=== PATIENT | male | born 1955 | race Caucasian/White ===

== ENCOUNTER → 2025-02-23 07:01 | Outpatient (REF) | payer MEDICARE, SELFPAY | LOC: HWRCS 07:01 | PROVIDERS: ATTENDING PHYSICIAN Internal Medicine; FAMILY PHYSICIAN Family Medicine | DX: I25.10 Atherosclerotic heart disease of native coronary artery without angina pectoris (principal); E78.2 Mixed hyperlipidemia | CPT/HCPCS: 78452; 93017; A9500; J2785 ==

== ENCOUNTER → 2025-02-28 10:56 | Outpatient (REF) | payer MEDICARE, SELFPAY ==
[2025-02-28 11:38] LABS: Hematocrit 41.7 % (39.0-52.0); Hemoglobin 13.6 g/dL (13.0-18.0); Mean Corp Hgb Conc. 32.6 g/dL (33.0-37.0); Mean Corpuscular Volume 93.9 fL (80.0-94.0); Nucleated Red Blood Cells % 0 % (-); Platelet Count 272 10^3/uL (130-400); Red Cell Dist. Width 14.8 % (11.5-14.5)
[2025-02-28 12:24] LABS: ALT (SGPT) 25 U/L (0-50); AST (SGOT) 19 U/L (17-59); Albumin 4.3 g/dl (3.5-5.0); Alkaline Phosphatase 78 U/L (38-126); Blood Urea Nitrogen 20 mg/dl (9-20); Calcium 9.4 mg/dl (8.4-10.2); Carbon Dioxide 29 mmol/L (22-30); Chloride 104 mmol/L (98-107); Glucose 201 mg/dl (70-99); Potassium 5.3 mmol/L (3.5-5.1); Sodium 138 mmol/L (135-145); Total Protein 7.2 g/dl (6.3-8.2); eGFR > 60.00
== END ==
LOC: SDSPAT 10:56
PROVIDERS: ATTENDING PHYSICIAN Student in an Organized Health Care Education/Training Program; FAMILY PHYSICIAN Family Medicine; OTHER PHYSICIAN Internal Medicine
DX: R94.39 Abnormal result of other cardiovascular function study (principal)
CPT/HCPCS: 36415; 80053; 85025; 93005

== ENCOUNTER 2025-03-02 07:43 | Day surgery (SDC) | payer MEDICARE, SELFPAY ==
[2025-02-28 11:01] VITALS: BMI 33.8
[2025-03-02] VITALS (12 sets, daily range): BP systolic 131–189; BP diastolic 65–99
[2025-03-02 08:29] LABS: Glucose - Point of Care 161 mg/dl (70-99)
[2025-03-02 11:26] LABS: ACT-LR - POC 260 Seconds (116-155)
[2025-03-02 11:26] LABS: ACT-LR - POC 237 Seconds (116-155)
[2025-03-02 11:26] LABS: ACT-LR - POC 250 Seconds (116-155)
--- NOTE | 2025-03-02 16:09 | W.PN.UPDATE ---
Update Note
Progress Note Update
Pt seen post LAD PCI. Right radial site and right groin site both without ht/bleeding. OOB ambulating. Post EKG NSR 66 w/RBBB as before, no acute changes. Understands importance of uninterrupted DAPT w/asa, plavix. Cardiac rehab consulted. Followup
at [facility] as scheduled. Home today if cath sites/tele remain stable.
--- NOTE | 2025-03-02 21:20 | ITS.CL.PN ---
[employer] - Procedure Note
Procedure
Procedure Note:
CARDIAC CATHETERIZATION REPORT
Date of Procedure: 03/02/2025
Referring: Dr. Jori Cabrera MD
Indication: atypical anginal, positive cardiac stress test
PROCEDURE(S)
1. left heart catheterization
2. coronary angiography
ACCESS:
1. 6F right radial artery (closure: radial band; abandoned due to subclavian tortuosity precluding catheter manipulation)
2. 6F right common femoral artery (closure: Perclose x1)
CATHETERS
1. 6F JR4
2. 6F JL4
3. 6F EBU3.75 guide
MODERATE SEDATION: 60 minutes of moderate sedation was utilized. An independent director medical safety was present to assist with and help manage the patient's level of consciousness and physiologic status.
HEMODYNAMIC DATA
LV 124/16 (EDP 24) mmHg
AO 121/65 (mean 87) mmHg
CORONARY ANGIOGRAPHY
Dominance: right
LM: Large with mild disease.
LAD: Large vessel giving rise to small D1, small D2, and moderate caliber D3 before wrapping around the apex. There are overlapping stents in the proximal to mid vessel. There is a severe 95% stenosis extending from the ostium distally ~10 mm. The
D3 has ostial pinching which was appreciated on prior angiography but WALLACE-3 flow. There is otherwise mild disease only.
LCx: Large vessel giving rise to a small OM1, small OM 2, moderate caliber LPL1, and small LPL 2. There is mild diffuse disease.
RCA: Moderate caliber vessel giving rise to a small RPDA. There is a 60% focal stenosis just after the takeoff of the RV marginal branch. This is unchanged in appearance from prior angiography.
PCI with SHAREE to ostial LAD
Heparin was given to achieve ACT greater than 300. The left main was engaged with an EBU 3.75 guide catheter and a Runthrough wire placed in the distal LAD and a second protection wire in the circumflex. Initial lesion preparation was performed with
a 2.0 mm semicompliant balloon. IVUS was performed demonstrating a 3.75 mm reference vessel diameter with moderate nonconcentric calcification at the lesion site. The vessel was stented with a 3.5 x 15 mm [place] drug-eluting stent postdilated
to high-pressure with a 3.75 mm NC balloon. Final IVUS demonstrated excellent stent apposition and expansion with perfect ostial positioning. The wire and guide were removed and a TR band placed. The patient was loaded with 600 mg of Plavix.
RADIATION: dose 73.3 mGy; DAP 1.3 Gy*cm2; fluoroscopy time 14.8 min
CONCLUSIONS
1. Severe ostial LAD stenosis with otherwise stable coronary angiography
2. Moderately elevated LV filling pressure and no aortic stenosis
3. Successful IVUS guided PCI with SHAREE to LAD (3.5 x 15 mm [place] drug-eluting stent postdilated to high-pressure with a 3.75 mm NC balloon)
RECOMMENDATIONS
1. Aggressive secondary prevention of coronary artery disease
2. DAPT with aspirin and Plavix for at least 1 year
Copy to: Dr. Jori Cabrera MD (audio/video engineer); Dr. Misha Madison MD (PCP)
Signed: Paxton Pinzon MD, PhD
== END 2025-03-02 16:15 | disposition home or self-care (01) ==
LOC: CATH 07:43
PROVIDERS: ATTENDING PHYSICIAN Student in an Organized Health Care Education/Training Program; FAMILY PHYSICIAN Family Medicine; OTHER PHYSICIAN Internal Medicine
DX: I25.10 Atherosclerotic heart disease of native coronary artery without angina pectoris (principal); Z79.899 Other long term (current) drug therapy; Z95.5 Presence of coronary angioplasty implant and graft; E11.9 Type 2 diabetes mellitus without complications; E66.9 Obesity, unspecified; E78.5 Hyperlipidemia, unspecified; G47.33 Obstructive sleep apnea (adult) (pediatric); I10 Essential (primary) hypertension; I25.2 Old myocardial infarction; I35.1 Nonrheumatic aortic (valve) insufficiency; I45.10 Unspecified right bundle-branch block; J43.9 Emphysema, unspecified; Z79.82 Long term (current) use of aspirin; Z79.84 Long term (current) use of oral hypoglycemic drugs; Z79.4 Long term (current) use of insulin; Z87.891 Personal history of nicotine dependence; Z96.641 Presence of right artificial hip joint; Z86.0100 Personal history of colon polyps, unspecified; Z68.33 Body mass index [BMI] 33.0-33.9, adult; M19.90 Unspecified osteoarthritis, unspecified site
CPT/HCPCS: 99152; 99153; 92978; 82962; 85347; 93005; 93458; C1725; C1753; C1760; C1874; C1894; C9600; Q9967

== ENCOUNTER 2025-04-03 13:00 | Outpatient (RCR) | payer MEDICARE, SELFPAY ==
[2025-04-03 15:20] LABS: Glucose - Point of Care 191 mg/dl (70-99)
== END 2025-04-03 23:59 | disposition home or self-care (01) ==
LOC: CRHB 13:00
PROVIDERS: ATTENDING PHYSICIAN Internal Medicine
DX: I25.10 Atherosclerotic heart disease of native coronary artery without angina pectoris (principal); Z95.5 Presence of coronary angioplasty implant and graft
CPT/HCPCS: 82962; G0422; G0423

== ENCOUNTER 2025-05-02 16:32 | Outpatient (RCR) | payer MEDICARE, SELFPAY ==
[2025-04-11 15:52] LABS: Glucose - Point of Care 183 mg/dl (70-99)
[2025-04-11 16:43] LABS: Glucose - Point of Care 109 mg/dl (70-99)
[2025-04-13 16:42] LABS: Glucose - Point of Care 106 mg/dl (70-99)
[2025-04-16 16:02] LABS: Glucose - Point of Care 231 mg/dl (70-99)
[2025-04-16 16:49] LABS: Glucose - Point of Care 143 mg/dl (70-99)
[2025-04-18 15:54] LABS: Glucose - Point of Care 171 mg/dl (70-99)
[2025-04-18 16:44] LABS: Glucose - Point of Care 100 mg/dl (70-99)
[2025-05-02 16:50] LABS: Glucose - Point of Care 133 mg/dl (70-99)
== END 2025-05-02 23:59 | disposition home or self-care (01) ==
LOC: CRHB 16:32
PROVIDERS: ATTENDING PHYSICIAN Internal Medicine
DX: I25.10 Atherosclerotic heart disease of native coronary artery without angina pectoris (principal); I25.2 Old myocardial infarction; Z95.5 Presence of coronary angioplasty implant and graft
CPT/HCPCS: 82962; G0422; G0423

== ENCOUNTER 2025-05-30 16:46 | Outpatient (RCR) | payer MEDICARE, SELFPAY ==
[2025-05-11 15:58] LABS: Glucose - Point of Care 114 mg/dl (70-99)
[2025-05-11 16:53] LABS: Glucose - Point of Care 74 mg/dl (70-99)
[2025-05-11 17:23] LABS: Glucose - Point of Care 155 mg/dl (70-99)
[2025-05-14 16:02] LABS: Glucose - Point of Care 206 mg/dl (70-99)
[2025-05-14 16:54] LABS: Glucose - Point of Care 121 mg/dl (70-99)
[2025-05-16 15:52] LABS: Glucose - Point of Care 182 mg/dl (70-99)
[2025-05-16 16:53] LABS: Glucose - Point of Care 95 mg/dl (70-99)
[2025-05-16 17:45] LABS: Glucose - Point of Care 159 mg/dl (70-99)
[2025-05-28 15:46] LABS: Glucose - Point of Care 129 mg/dl (70-99)
[2025-05-28 16:46] LABS: Glucose - Point of Care 135 mg/dl (70-99)
[2025-05-30 15:35] LABS: Glucose - Point of Care 252 mg/dl (70-99)
[2025-05-30 16:30] LABS: Glucose - Point of Care 149 mg/dl (70-99)
== END 2025-05-30 23:59 | disposition home or self-care (01) ==
LOC: CRHB 16:46
PROVIDERS: ATTENDING PHYSICIAN Internal Medicine
DX: I25.10 Atherosclerotic heart disease of native coronary artery without angina pectoris (principal); I25.2 Old myocardial infarction; Z95.5 Presence of coronary angioplasty implant and graft
CPT/HCPCS: 82962; G0422; G0423

== ENCOUNTER 2025-07-03 15:58 | Outpatient (RCR) | payer MEDICARE, SELFPAY ==
[2025-06-04 15:50] LABS: Glucose - Point of Care 155 mg/dl (70-99)
[2025-06-04 16:54] LABS: Glucose - Point of Care 105 mg/dl (70-99)
[2025-06-08 15:32] LABS: Glucose - Point of Care 207 mg/dl (70-99)
[2025-06-08 16:32] LABS: Glucose - Point of Care 139 mg/dl (70-99)
[2025-06-11 15:29] LABS: Glucose - Point of Care 113 mg/dl (70-99)
[2025-06-11 16:27] LABS: Glucose - Point of Care 129 mg/dl (70-99)
[2025-06-13 15:52] LABS: Glucose - Point of Care 191 mg/dl (70-99)
[2025-06-13 16:54] LABS: Glucose - Point of Care 106 mg/dl (70-99)
[2025-06-20 15:49] LABS: Glucose - Point of Care 188 mg/dl (70-99)
[2025-06-20 16:50] LABS: Glucose - Point of Care 136 mg/dl (70-99)
[2025-06-25 15:45] LABS: Glucose - Point of Care 255 mg/dl (70-99)
[2025-06-25 16:47] LABS: Glucose - Point of Care 128 mg/dl (70-99)
[2025-07-03 15:42] LABS: Glucose - Point of Care 207 mg/dl (70-99)
[2025-07-03 16:41] LABS: Glucose - Point of Care 160 mg/dl (70-99)
== END 2025-07-03 23:59 | disposition home or self-care (01) ==
LOC: CRHB 15:58
PROVIDERS: ATTENDING PHYSICIAN Internal Medicine
DX: I25.10 Atherosclerotic heart disease of native coronary artery without angina pectoris (principal); I25.2 Old myocardial infarction; Z95.5 Presence of coronary angioplasty implant and graft
CPT/HCPCS: 82962; G0422; G0423